=== PATIENT | male | born 1980 | race African-American/Black ===

== ENCOUNTER 2017-10-26 04:47 | Emergency (ER) | END 2017-10-26 05:50 | disposition left against medical advice (07) ==

== ENCOUNTER 2017-10-26 18:17 | Emergency (ER) | END 2017-10-27 05:01 | disposition left against medical advice (07) ==

== ENCOUNTER 2018-11-06 22:41 | Emergency (ER) | payer OTHER ==
[~2018-11-06] VITALS: Ht 188 cm; Wt 77.5 kg
[2018-11-07 02:41] VITALS: Ht 188 cm; Wt 77.5 kg
[2018-11-07] MEDS ORDERED: IBUP-1542 PO (05:03)
--- NOTE | 2018-11-07 05:05 | ERD ---
ER Documentation Chief Complaint Chief Complaint c/o headache x 2 days HPI This is a 38-year-old male with history of schizophrenia complaining of mild headache that he has had for 2 days. His bilateral frontal and feels like a band tightening around his head. He has no suicidal or homicidal ideations. No fever. No nausea or vomiting. No photosensitivity or visual changes. ROS All systems reviewed and are negative except as per history of present illness. Medications Home Meds Active Scripts Ibuprofen* (Motrin*) 600 Mg Tab, 600 MG PO Q6, #30 TAB Prov:CHAPACASANDRA WILSON PA-C 11/07/18 Allergies Allergies: Coded Allergies: No Known Allergy (Unverified , 10/27/17) PMhx/Soc History of Surgery: Yes (knee surgery) Anesthesia Reaction: No Hx Alcohol Use: Yes (occasionally) Hx Substance Use: No Hx Tobacco Use: No FmHx Family History: No diabetes Physical Exam Vitals Vital Signs Date Temp Pulse Resp B/P (MAP) Pulse Ox O2 O2 Flow FiO2 Time Delivery Rate 11/07/18 97.5 75 18 122/57 100 02:41 (78) 11/06/18 97.5 75 18 122/57 100 22:50 (78) Physical Exam INITIAL VITAL SIGNS: Reviewed by me GENERAL: Awake, alert and oriented x 4, well appearing, nontoxic, speaking in full sentences. No acute distress HEAD: Atraumatic NECK: Supple. No masses. Full range of motion. No meningismus. No midline tenderness. EYES: EOMI. PERRL. RESPIRATORY: Clear to auscultation bilaterally. Symmetric chest wall rise. No wheezing or rales. No accessory muscle use. CV: Regular rate and rhythm. No murmurs, rubs, or gallops. NEUROLOGIC: Normal mental status and speech. Face is symmetric. Moves all extremities equally. Motor and sensory distally intact. Normal coordination. Ambulates with a strong steady gait. Procedures/MDM Patient states he has a mild headache. He is schizophrenic but has no suicidal or homicidal ideations. The differential diagnosis includes but is not limited to subdural hematoma, epidural hematoma, intracerebral hemorrhage, occult trauma, CVA, meningitis, encephalitis, hypertension, tension, migraine, cluster, cervical spine disease, and others. Prescription for Motrin given. Patient counseled regarding my diagnostic impression and care plan. Prior to discharge all questions answered. Pt agrees with treatment plan and understands strict return precautions. Pt is instructed to follow up with primary care provider within 24-48 hours. Precautionary instructions provided including instructions to return to the ER if not improving or for any worsening or changing symptoms or concerns. Departure Diagnosis: Primary Impression: Headache Condition: Stable Patient Instructions: Self-Care for Headaches Additional Instructions: Call your primary care doctor TOMORROW for an appointment during the next 1-2 days.See the doctor sooner or return here if your condition worsens before your appointment time. CASANDRA CHAPA PA-C Nov 07, 2018 05:05
[2018-11-07 05:20] VITALS: BP 109/65; PULSE 64; RESP 18
== END 2018-11-07 05:50 | disposition home or self-care (01) ==
LOC: FTE 22:41
DX: R51 Headache (principal)
CPT/HCPCS: 99282

== ENCOUNTER 2018-12-16 19:36 | Emergency (ER) | payer OTHER ==
[~2018-12-16] VITALS: Ht 185.4 cm; Wt 74.3 kg
[~2018-12-16 19:36] MED LIST: IBUP-1542 PO
[2018-12-16 19:51] VITALS: BP 105/62; PULSE 57; RESP 16; Ht 185.4 cm; Wt 74.3 kg
[2018-12-17] MEDS ORDERED: BEN25 PO (01:30)
--- NOTE | 2018-12-17 14:09 | ERD ---
ER Documentation Chief Complaint Chief Complaint INSOMINA X 2 MONTHS. HPI Encounter occurred on 12/16/18 38 yo M with pmhx of schizophrenia who presents with complaint of difficulty sleeping over the past 2 months. Pt states that he feels someone is preventing him from sleep. At time of examination patient is calm and cooperative. He denies suicidal or homicidal ideation. States he follows with mental health clinic and reports being seen for routine visit one week ago. He is currently homeless an has been in an out of various shelters. He otherwise denies recent illness, fevers, chills, CP, SOB, POSADA, N/V/D, abdominal pain, urinary symptoms. ROS All systems reviewed and are negative except as per history of present illness. Medications Home Meds Active Scripts Diphenhydramine Hcl* (Benadryl*) 25 Mg Cap, 25 MG PO Q6, #7 CAP Prov:RADHA BANKS PA-C 12/17/18 Ibuprofen* (Motrin*) 600 Mg Tab, 600 MG PO Q6, #30 TAB Prov:CASANDRA CHAPA PA-C 11/07/18 Allergies Allergies: Coded Allergies: No Known Allergy (Unverified , 10/27/17) PMhx/Soc History of Surgery: Yes (knee surgery) Anesthesia Reaction: No Hx Alcohol Use: No Hx Substance Use: No Hx Tobacco Use: No Smoking Status: Never smoker FmHx Family History: No diabetes, No coronary disease, No other Physical Exam Vitals Vital Signs Date Temp Pulse Resp B/P (MAP) Pulse Ox O2 O2 Flow FiO2 Time Delivery Rate 12/16/18 97.8 57 16 105/62 99 19:51 (76) Physical Exam Const: No acute distress, AAOX3 Head: Atraumatic Eyes: Normal Conjunctiva ENT: Normal External Ears, Nose and Mouth. Neck: Full range of motion. No meningismus. Resp: Clear to auscultation bilaterally Cardio: Regular rate and rhythm, no murmurs Abd: Soft, non tender, non distended. Normal bowel sounds Skin: No petechiae or rashes Back: No midline or flank tenderness Ext: No cyanosis, or edema Neur: Awake and alert Psych: Normal Mood and Affect, makes no eye contact, calm Procedures/MDM 38 yo M with pmhx of schizophrenia who presents with insomina x 2 months. I have low suspicion for etiology that warrants further ED work up or hospital admission. Pt denies suicidal or homicdal ideation. Patient calm and cooperative during exam but exam is significant for paranoia. Will discharge with Benadryl for sleep aide and advise patient to follow up with mental health. DISPOSITION PLAN: We discussed follow up with the patient's primary care doctor within 24 to 48 hours. Patient counseled regarding my diagnostic impression and care plan. Prior to discharge all questions answered. Pt agrees with treatment plan and understands strict return precautions. Precautionary instructions provided including instructions to return to the ER if not improving or for any worsening or changing symptoms or concerns. Disclaimer: Inadvertent spelling and grammatical errors are likely due to EHR/dictation software use and do not reflect on the overall quality of patient care. Also, please note that the electronic time recorded on this note does not necessarily reflect the actual time of the patient encounter. Departure Diagnosis: Primary Impression: Insomnia Condition: Stable Patient Instructions: Treating Insomnia, Insomnia Referrals: [facility] YOU HAVE RECEIVED A MEDICAL SCREENING EXAM AND THE RESULTS INDICATE THAT YOU DO NOT HAVE A CONDITION THAT REQUIRES URGENT TREATMENT IN THE EMERGENCY DEPARTMENT. FURTHER EVALUATION AND TREATMENT OF YOUR CONDITION CAN WAIT UNTIL YOU ARE SEEN IN YOUR DOCTORS OFFICE WITHIN THE NEXT 1-2 DAYS. IT IS YOUR RESPONSIBILITY TO MAKE AN APPOINTMENT FOR FOLOW-UP CARE. IF YOU HAVE A PRIMARY DOCTOR --you should call your primary doctor and schedule an appointment IF YOU DO NOT HAVE A PRIMARY DOCTOR YOU CAN CALL OUR PHYSICIAN REFERRAL HOTLINE AT IF YOU CAN NOT AFFORD TO SEE A PHYSICIAN YOU CAN CHOSE FROM THE FOLLOWING [facility] [address] [facility] [address] [facility] [facility] [address] [facility] [address] [facility] [address] [facility]. [facility]. [address] Additional Instructions: Call your primary care doctor TOMORROW for an appointment during the next 2-3 days.See the doctor sooner or return here if your condition worsens before your appointment time. RADHA BANKS PA-C Dec 17, 2018 14:09
== END 2018-12-17 01:52 | disposition home or self-care (01) ==
LOC: FTE 19:36
DX: G47.00 Insomnia, unspecified (principal)
CPT/HCPCS: 99282

== ENCOUNTER 2019-01-01 02:53 | Emergency (ER) | payer OTHER ==
[~2019-01-01] VITALS: Ht 188 cm; Wt 77.7 kg
[~2019-01-01 02:53] MED LIST changes: +BEN25 PO
[2019-01-01 03:02] VITALS: Ht 188 cm; Wt 77.7 kg
[2019-01-01] MEDS ORDERED: IBUP-1542 PO (04:33)
--- NOTE | 2019-01-01 04:51 | ERD ---
ER Documentation Chief Complaint Chief Complaint BILATERAL FEET HURTING FROM "WALKING SINCE 0230"; NO KNOWN INJ HPI 38-year-old male presents with complaint of bilateral feet pain. He says from walking too much. The pain is located in the heels of his bilateral feet. Denies any numbness, tingling, masses, fevers. Denies any treatments. ROS All systems reviewed and are negative except as per history of present illness. Medications Home Meds Active Scripts Ibuprofen* (Motrin*) 600 Mg Tab, 600 MG PO Q6 for pain, #30 TAB Prov:JIMBOTAYLOR 01/01/19 Diphenhydramine Hcl* (Benadryl*) 25 Mg Cap, 25 MG PO Q6, #7 CAP Prov:RADHA BANKS PA-C 12/17/18 Ibuprofen* (Motrin*) 600 Mg Tab, 600 MG PO Q6, #30 TAB Prov:CASANDRA CHAPA PA-C 11/07/18 Allergies Allergies: Coded Allergies: No Known Allergy (Unverified , 10/27/17) PMhx/Soc History of Surgery: Yes (knee surgery) Anesthesia Reaction: No Hx Alcohol Use: No Hx Substance Use: No Hx Tobacco Use: No Smoking Status: Never smoker FmHx Family History: No diabetes, No coronary disease, No other Physical Exam Vitals Vital Signs Date Temp Pulse Resp B/P (MAP) Pulse Ox O2 O2 Flow FiO2 Time Delivery Rate 01/01/19 97.8 62 18 106/52 100 03:02 (70) Physical Exam Const: No acute distress Head: Atraumatic Eyes: Normal Conjunctiva ENT: Normal External Ears, Nose and Mouth. Neck: Full range of motion. No meningismus. Resp: Clear to auscultation bilaterally Cardio: Regular rate and rhythm, no murmurs Abd: Soft, non tender, non distended. Normal bowel sounds Skin: No petechiae or rashes Back: No midline or flank tenderness Feet: Feet are atraumatic without lesions, edema, erythema, or masses bilaterally. There is some tenderness to palpation in the heels of both feet. Compartments are soft and warm. There is full range of motion of ankles and toes. Sensation on all areas of feet is intact. Neur: Awake and alert Psych: Normal Mood and Affect Procedures/MDM MDM: Patient's presentation is consistent with plantar fasciitis. Patient was given prescription for ibuprofen. Patient advised to see a health and physical education teacher and was given educational materials on how to best manage this condition. I have low suspicion for neurovascular compromise, compartment syndrome, fracture, osteomyelitis, septic joint, or other emergent condition. Patient discharged with strict ER precautions. Patient advised to follow up with PMD. All questions answered at discharge. Departure Diagnosis: Primary Impression: Foot pain Laterality: bilateral Qualified Codes: M79.671 - Pain in right foot; M79.672 - Pain in left foot Condition: Stable Patient Instructions: What Is Plantar Fasciitis?, Treating Plantar Fasciitis, Plantar Fasciitis Referrals: [facility] YOU HAVE RECEIVED A MEDICAL SCREENING EXAM AND THE RESULTS INDICATE THAT YOU DO NOT HAVE A CONDITION THAT REQUIRES URGENT TREATMENT IN THE EMERGENCY DEPARTMENT. FURTHER EVALUATION AND TREATMENT OF YOUR CONDITION CAN WAIT UNTIL YOU ARE SEEN IN YOUR DOCTORS OFFICE WITHIN THE NEXT 1-2 DAYS. IT IS YOUR RESPONSIBILITY TO MAKE AN APPOINTMENT FOR FOLOW-UP CARE. IF YOU HAVE A PRIMARY DOCTOR --you should call your primary doctor and schedule an appointment IF YOU DO NOT HAVE A PRIMARY DOCTOR YOU CAN CALL OUR PHYSICIAN REFERRAL HOTLINE AT IF YOU CAN NOT AFFORD TO SEE A PHYSICIAN YOU CAN CHOSE FROM THE FOLLOWING [facility] [address]. [facility] [address] [facility]. [facility] [address] [facility]. [facility] [address] [facility]. [facility] [address] [facility]. [facility]. [address] Additional Instructions: FOLLOW UP WITH YOUR PRIMARY CARE PHYSICIAN TOMORROW.Return to this facility if you are not improving as expected. TAYLOR CHOI January 01, 2019 04:51
[2019-01-01 04:54] VITALS: BP 110/68; PULSE 68; RESP 16
== END 2019-01-01 04:57 | disposition home or self-care (01) ==
LOC: FTE 02:53
DX: M72.2 Plantar fascial fibromatosis (principal); M79.671 Pain in right foot
CPT/HCPCS: 99282

== ENCOUNTER 2019-01-13 01:49 | Emergency (ER) | payer SELFPAY ==
[~2019-01-13] VITALS: Ht 190.5 cm; Wt 77.4 kg
[2019-01-13 02:29] VITALS: BP 112/69; PULSE 60; RESP 18; Ht 190.5 cm; Wt 77.4 kg
== END 2019-01-13 06:30 | disposition left against medical advice (07) ==
LOC: FTE 01:49
DX: Z53.21 Procedure and treatment not carried out due to patient leaving prior to being seen by health care provider (principal)

== ENCOUNTER 2019-01-14 20:23 | Emergency (ER) | payer SELFPAY ==
[~2019-01-14] VITALS: Ht 185.4 cm; Wt 77.0 kg
[2019-01-14 20:28] VITALS: BP 117/77; PULSE 66; RESP 16; Ht 185.4 cm; Wt 77.0 kg
--- NOTE | 2019-01-14 21:55 | ERD ---
ER Documentation Chief Complaint Chief Complaint Pt reports "NSA is freezing my insides" HPI This is a 38-year-old man with history of schizophrenia triaged as having "freezing insides" upon further questioning patient denied vomiting or blood per rectum, no weight loss, no complaints of chest pain or shortness of breath, no suicidal or homicidal ideation. Patient refused to provide further details of why he is here or how I could help him. ROS All systems reviewed and are negative except as per history of present illness. Medications Home Meds Active Scripts Ibuprofen* (Motrin*) 600 Mg Tab, 600 MG PO Q6 for pain, #30 TAB Prov:JIMBOTAYLOR 01/01/19 Diphenhydramine Hcl* (Benadryl*) 25 Mg Cap, 25 MG PO Q6, #7 CAP Prov:RADHA BANKS PA-C 12/17/18 Ibuprofen* (Motrin*) 600 Mg Tab, 600 MG PO Q6, #30 TAB Prov:CASANDRA CHAPA PA-C 11/07/18 Allergies Allergies: Coded Allergies: No Known Allergy (Unverified , 10/27/17) PMhx/Soc History of Surgery: Yes (knee surgery) Anesthesia Reaction: No Hx Alcohol Use: No Hx Substance Use: No Hx Tobacco Use: No FmHx Family History: No diabetes Physical Exam Vitals Vital Signs Date Temp Pulse Resp B/P (MAP) Pulse Ox O2 O2 Flow FiO2 Time Delivery Rate 01/14/19 98.2 66 16 117/77 100 20:28 (90) Physical Exam Const: No acute distress, afebrile Resp: Clear to auscultation bilaterally Cardio: Regular rate and rhythm, no murmurs Skin: No petechiae or rashes Back: No midline or flank tenderness Neur: Awake and alert x3, gait normal, no focal deficits Psych: Bizarre affect Procedures/MDM Patient eloped from the ED before providing a full HPI and did not really allow for more thorough physical exam. He did deny suicidal homicidal ideation and looked otherwise well. Departure Diagnosis: Primary Impression: Schizophrenia Schizophrenia type: unspecified Qualified Codes: F20.9 - Schizophrenia, unspecified Condition: Stable CONSUELO FRANKLIN MD January 14, 2019 21:55
== END 2019-01-14 22:06 | disposition left against medical advice (07) ==
LOC: E/R 20:23
DX: F20.9 Schizophrenia, unspecified (principal)
CPT/HCPCS: 99282